=== PATIENT | male | born 1995 | race Caucasian/White ===

== ENCOUNTER 2016-10-21 01:22 | Emergency (ER) | payer OTHER ==
[2016-10-21 01:46] VITALS: BP 142/74; PULSE 83; TEMP 98.5; BMI 30.5
--- NOTE | 2016-10-21 02:45 | PDOC ---
History of Present Illness - General History Source: Patient Exam Limitations: No Limitations - History of Present Illness Initial Comments: CHIEF COMPLAINT: 21 y/o afebrile male with no significant PMH c/o left ear pain today. HISTORY OF PRESENT ILLNESS: The patient just returned from a vacation at the beach and states he's been swimming a lot. Today he developed left ear pain and thinks it's swimmer's ear. He states it feels like there is fluid in his ear. His mom has been putting OTC ear drops in his left ear without relief. He denies f/c, n/v/d, cough, runny nose, PEREA, foul smelling discharge from affected ear. Vital signs on arrival are within normal limits. REVIEW OF SYSTEMS: GENERAL/CONSTITUTIONAL: No fever/chills. No weakness. No weight change. HEAD, EYES, EARS, NOSE AND THROAT: No change in vision. +left ear pain. No sore throat. MUSCULOSKELETAL: No joint or muscle swelling or pain. No neck or back pain. SKIN: No rash or easy bruising. NEUROLOGIC: No headache, vertigo, loss of consciousness, or loss of sensation. PHYSICAL EXAM: GENERAL: The patient is awake, alert, and fully oriented, in no acute distress. He is well appearing and ambulatory. HEAD: Normal with no signs of trauma. No mastoid TTP b/l. EYES: Pupils equal, round and reactive to light, extraocular movements intact, sclera anicteric, conjunctiva clear. EARS: Left ear canal erythematous and moderately swollen. Cannot visualize TM secondary to fluid. EXTREMITIES: Normal range of motion, no edema. NEUROLOGICAL: Normal speech, normal gait. SKIN: Warm, Dry, normal turgor, no rashes or lesions noted. <Silvina Ramirez - Last Filed: 10/21/16 03:20> <Lorena Dos Santos - Last Filed: 10/21/16 05:29> - General Chief Complaint: Pain Stated Complaint: EAR PROBLEM Time Seen by Provider: 10/21/16 02:18 Past History - Past Medical History Asthma: Yes Suicide Attempt (Hx): No - Immunization History Immunization Up to Date: Yes - Psycho/Social/Smoking Cessation Hx Anxiety: No Suicidal Ideation: No Smoking Status: No Smoking History: Current every day smoker Number of Cigarettes Smoked Daily: 10 Information on smoking cessation initiated: No Hx Alcohol Use: No Drug/Substance Use Hx: No Substance Use Type: None <Silvina Ramirez - Last Filed: 10/21/16 03:20> <Lorena Dos Santos - Last Filed: 10/21/16 05:29> - Past Medical History Allergies/Adverse Reactions: Allergies Allergy/AdvReac Type Severity Reaction Status Date / Time No Known Allergies Allergy Verified 10/21/16 01:43 Home Medications: Ambulatory Orders Oseltamivir Phosphate [Tamiflu] 75 mg PO BID #10 capsule 07/13/15 Ciprofloxacin HCl/Dexameth [Ciprodex Otic Suspension] 4 drop BID #1 bottle *Physical Exam - Vital Signs Last Vital Signs Temp Pulse Resp BP Pulse Ox 98.5 F 83 20 142/74 100 10/21/16 01:43 10/21/16 01:43 10/21/16 01:43 10/21/16 01:43 10/21/16 01:43 <Silvina Ramirez - Last Filed: 10/21/16 03:20> - Vital Signs Last Vital Signs Temp Pulse Resp BP Pulse Ox 98.5 F 83 20 142/74 100 10/21/16 01:43 10/21/16 01:43 10/21/16 01:43 10/21/16 01:43 10/21/16 01:43 <Lorena Dos Santos - Last Filed: 10/21/16 05:29> Medical Decision Making - Medical Decision Making A/P: 21 y/o male with left swimmer's ear. Will send rx for ciprodex drops. Instructed him to take as prescribed. instructed him to f/u with his PCP if no improvement in symptoms within 2-3 days. Suggested motrin for pain and return to the ER with any worsening symptoms. The patient verbalizes understanding of all instructions, has no further questions and is awaiting discharge. <Silvina Ramirez - Last Filed: 10/21/16 03:20> *DC/Admit/Observation/Transfer <Silvina Ramirez - Last Filed: 10/21/16 03:20> - Attestations Physician Attestion: I reviewed the case with the mid-level practitioner and agree with the mid- level practitioner's assessment, diagnosis and disposition. <Carolina Dos Santoszabeth - Last Filed: 10/21/16 05:29> Diagnosis at time of Disposition: Otitis externa Qualifiers: Otitis externa type: swimmer's ear Chronicity: acute Laterality: left Qualified Code(s): H60.332 - Swimmer's ear, left ear - Discharge Dispostion Disposition: HOME Condition at time of disposition: Good - Prescriptions Prescriptions: Ciprofloxacin HCl/Dexameth [Ciprodex Otic Suspension] 4 drop BID #1 bottle - Referrals Referrals: Jerry Torres MD [Primary Care Provider] - - Patient Instructions Printed Discharge Instructions: DI for Otitis Externa Additional Instructions: Discharge Instructions: -A prescription has been sent to your pharmacy; please take as prescribed -Follow up with your doctor within 1 week -Return to the ER with any worsening or concerning symptoms.
== END 2016-10-21 04:49 | disposition home or self-care (01) ==
LOC: JER 01:22
DX: H60.332 Swimmer's ear, left ear (principal); J45.909 Unspecified asthma, uncomplicated; F17.210 Nicotine dependence, cigarettes, uncomplicated
CPT/HCPCS: 99282-25

== ENCOUNTER 2016-10-23 17:14 | Emergency (ER) | payer OTHER ==
[2016-10-23 17:48] VITALS: BP 129/77; PULSE 74; TEMP 98.4; BMI 31.4
--- NOTE | 2016-10-23 18:16 | PDOC ---
History of Present Illness - History of Present Illness Initial Comments: 10/23/16 18:20 Chief Complaint: left ear pain HPI: 21 y/o M with no PMHx presents to the ED with left ear pain and bleeding. Patient recently went on vacation to [place] and was swimming a lot. Once he came back he began to have left ear pain. He went to [facility] 3 days ago for the pain and was given Ciprodex ear drops. Patient states the pain continued and he noticed blood and fluid coming from his ear. He reports associated numbness around his left ear and some dizziness. Denies headache, changes in vision. No other complaints. ROS: CONSTITUTIONAL: Absent: fever, chills, fatigue EYES: Absent: visual changes ENT: (+) left ear pain. Absent: sore throat CARDIOVASCULAR: Absent: chest pain, palpitations RESPIRATORY: Absent: cough, SOB GI: Absent: abdominal pain, nausea, vomiting, constipation, diarrhea GENITOURINARY: Absent: dysuria, frequency, hematuria MUSCULOSKELETAL: Absent: back pain, arthralgia, myalgia SKIN: Absent: rash NEURO: Absent: headache Physical Exam: HEENT: Severe inflammation and narrowing of the left external canal with serosanguinous drainage. TM is not visualized. No signs of cellulitis in the preauricular area or other parts of the face. No palpable lymphadenopathy. <Wendy Sawant - Last Filed: 10/23/16 18:20> <Geronimo Isaac - Last Filed: 10/24/16 08:07> - General Chief Complaint: Pain, Acute Stated Complaint: left ear pain Time Seen by Provider: 10/23/16 17:32 Past History <Wendy Sawant - Last Filed: 10/23/16 18:20> - Past Medical History Asthma: Yes Suicide Attempt (Hx): No - Immunization History Td Vaccination: No TDAP Vaccination: No Immunization Up to Date: Yes - Psycho/Social/Smoking Cessation Hx Anxiety: No Suicidal Ideation: No Smoking Status: No Smoking History: Current every day smoker Have you smoked in the past 12 months: Yes Number of Cigarettes Smoked Daily: 10 Information on smoking cessation initiated: Yes 'Breaking Loose' booklet given: 10/23/16 Hx Alcohol Use: Yes (socially) Drug/Substance Use Hx: No Substance Use Type: None <Geronimo Isaac - Last Filed: 10/24/16 08:07> - Past Medical History Allergies/Adverse Reactions: Allergies Allergy/AdvReac Type Severity Reaction Status Date / Time No Known Allergies Allergy Verified 10/24/16 03:25 Home Medications: Ambulatory Orders Ciprofloxacin HCl/Dexameth [Ciprodex Otic Suspension] 4 drop BID #1 bottle Albuterol Sulfate Inhaler - [Ventolin HFA Inhaler -] 2 inh PO Q4H PRN 10/23/16 Cephalexin Monohydrate [Keflex] 500 mg PO Q6H #30 capsule 10/23/16 *Physical Exam - Vital Signs Last Vital Signs Temp Pulse Resp BP Pulse Ox 98.4 F 74 16 129/77 100 10/23/16 17:18 10/23/16 17:18 10/23/16 17:18 10/23/16 17:18 10/23/16 17:18 <Wendy Sawant - Last Filed: 10/23/16 18:20> - Vital Signs Last Vital Signs Temp Pulse Resp BP Pulse Ox 98.4 F 74 16 129/77 100 10/23/16 17:18 10/23/16 17:18 10/23/16 17:18 10/23/16 17:18 10/23/16 17:18 <Geronimo Isaac - Last Filed: 10/24/16 08:07> Medical Decision Making - Medical Decision Making 10/24/16 08:06 Patient appears to have significant otitis externa following a vacation at the beach. There is no fever or sign of URI which would suggest otitis media, however, TM is not visualized due to swelling and inflammation of the ear canal. There is minimal bleeding due to irritation of the canal To continue Cipro eardrops as well as oral antibiotics. ENT referral. No distress and fully ambulatory upon discharge with his mother to follow-up as directed <Geronimo Isaac - Last Filed: 10/24/16 08:07> *DC/Admit/Observation/Transfer - Attestations Scribe Attestion: 10/23/16 18:21 Documentation prepared by Wendy Sawant, acting as medical technologist generalist for Geronimo Deras MD. <Wendy Sawant - Last Filed: 10/23/16 18:20> - Discharge Dispostion Admit: No <Geronimo Isaac - Last Filed: 10/24/16 08:07> Diagnosis at time of Disposition: Otitis externa hemorrhagica Qualifiers: Chronicity: acute Laterality: left Qualified Code(s): H60.322 - Hemorrhagic otitis externa, left ear - Discharge Dispostion Condition at time of disposition: Stable - Prescriptions Prescriptions: Cephalexin Monohydrate [Keflex] 500 mg PO Q6H #30 capsule - Referrals Referrals: Hakeem Cutler MD [Staff Physician] - - Patient Instructions Printed Discharge Instructions: DI for Otitis Externa Additional Instructions: Use cotton to occlude the ear canal after using drops. Be sure not to push the cotton into deep into the canal. Take oral antibiotics as directed. Continue to use eardrops as well You may use Tylenol and/or Aleve/ibuprofen for discomfort. You may use an antihistamine such as Benadryl, Sammie, Zyrtec, for congestion. See ENT doctor if there is no improvement in 5-7 days for further evaluation and treatment
== END 2016-10-23 18:22 | disposition home or self-care (01) ==
LOC: FER 17:14
DX: H60.322 Hemorrhagic otitis externa, left ear (principal); F17.210 Nicotine dependence, cigarettes, uncomplicated; J45.909 Unspecified asthma, uncomplicated
CPT/HCPCS: 99281-25

== ENCOUNTER 2016-10-24 03:18 | Inpatient (IN) | payer OTHER ==
--- NOTE | 2016-10-24 04:11 | PDOC ---
History of Present Illness - General Chief Complaint: Ear Problem Stated Complaint: EAR PROBLEM Time Seen by Provider: 10/24/16 03:27 - History of Present Illness Initial Comments: 10/24/16 04:10 CHIEF COMPLAINT: ear pain HISTORY OF PRESENT ILLNESS: 21 yo M with no PMH returns to ED for worsening ear pain over the last 4 days. Patient was recently on vacation to a beach in [place] and states that he was swimming a lot. He began having L ear pain on 10/20 and came to the ER on 10/21; was discharged with Ciprodex ear drops. He then returned yesterday with worsening pain and bloody discharge from the L ear and was discharged with Keflex. He states that the pain has now worsened and he feels as if his hearing is "dampened." He denies any fever, chills, vomiting, or diarrhea but states that he did have some nausea. PAST MEDICAL HISTORY: Denies past medical history FAMILY HISTORY: Denies SOCIAL HISTORY:Denies tobacco, alcohol, illicit drug use. SURGICAL HISTORY: Denies ALLERGIES: No known drug allergies REVIEW OF SYSTEMS General/Constitutional: Denies fever or chills. HEENT: B/l ear pain with bloody discharge. Denies change in vision. Denies sore throat. Cardiovascular: Denies chest pain or shortness of breath. Respiratory: Denies cough, wheezing, or hemoptysis. Gastrointestinal: Nausea. Denies vomiting, diarrhea or constipation. Denies rectal bleeding. Musculoskeletal: Denies joint or muscle swelling or pain. Denies neck or back pain. Skin: Denies rash or easy bruising. Neurologic: Denies headache, vertigo, loss of consciousness, or loss of sensation. PHYSICAL EXAM General Appearance: Well-appearing, appropriately dressed. No apparent distress. HEENT: B/l auditory canals with serosanguinous discharge. Markedly erythematous and edematous ear canals. L TM with bloody discharge, difficult to visualize. Tenderness to posterior L ear. EOMI, PERRLA,normal voice, pharynx normal. No conjunctival pallor. No photophobia, scleral icterus. Respiratory/Chest: Lungs CTAB. Cardiovascular: RRR. S1, S2. Musculoskeletal/Extremities: Normal inspection. FROM of all extremities, normal capillary refill. No tenderness to extremities, pedal edema, swelling, erythema or deformity. Integumentary: Appropriate color, dry, warm. No cyanosis, erythema, jaundice or rash Neurologic: partner alliance manager II-XII intact. Fully oriented, alert. Appropriate mood/affect. Motor strength 5/5. No appreciable EOM palsy, facial droop or sensory deficit. Past History - Past Medical History Allergies/Adverse Reactions: Allergies Allergy/AdvReac Type Severity Reaction Status Date / Time No Known Allergies Allergy Verified 10/24/16 03:25 Home Medications: Ambulatory Orders Ciprofloxacin HCl/Dexameth [Ciprodex Otic Suspension] 4 drop BID #1 bottle Albuterol Sulfate Inhaler - [Ventolin HFA Inhaler -] 2 inh PO Q4H PRN 10/23/16 Cephalexin Monohydrate [Keflex] 500 mg PO Q6H #30 capsule 10/23/16 Asthma: Yes Suicide Attempt (Hx): No - Immunization History Td Vaccination: No TDAP Vaccination: No Immunization Up to Date: Yes - Psycho/Social/Smoking Cessation Hx Anxiety: No Suicidal Ideation: No Smoking Status: No Smoking History: Current every day smoker Have you smoked in the past 12 months: Yes Number of Cigarettes Smoked Daily: 10 Information on smoking cessation initiated: No 'Breaking Loose' booklet given: 10/23/16 Hx Alcohol Use: No Drug/Substance Use Hx: No Substance Use Type: None *Physical Exam - Vital Signs Last Vital Signs Temp Pulse Resp BP Pulse Ox 98.3 F 88 20 120/69 99 10/24/16 03:26 10/24/16 03:26 10/24/16 03:26 10/24/16 03:26 10/24/16 03:26 ED Treatment Course - RADIOLOGY Radiology Studies Ordered: Category Date Time Status HEAD CT WITHOUT CONTRAST [CT] Stat CT Scan 10/24/16 03:40 Ordered Medical Decision Making - Medical Decision Making 10/24/16 04:18 21 yo M with no PMH returns to ED for third visit for worsening ear pain over the last 4 days. Concern for mastoiditis. -Temporal bone CT r/o mastoiditis 10/24/16 06:[address] results. Patient reassessed, c/o pain. -800 mg ibuprofen -CBC, CMP, blood cx -500 mg Levaquin IVPB Case discussed in detail with oncoming emergency provider including history, physical exam and ancillary studies. In brief, this patient is being seen in the ED for a chief complaint of: ear pain I have completed the initial assessment interview note and have ordered the following labs: CBC, CMP, blood cultures I have reviewed the following results: none Pending results: all Plan for disposition as follows: pending CT Oncoming SILAS Byrnes has assumed care for the patient and will complete the evaluation and treatment. 10/24/16 06:32
[2016-10-24] MEDS ORDERED: IBUPROFEN 400 MG TABLET (FP) PO ONE ×2 (06:16→06:21)
[2016-10-24] MEDS ORDERED: LEVOFLOXACIN 500 MG IVPB 100 ML IVPB ONE ×2 (06:24→06:27)
[2016-10-24 06:55] LABS: BASOPHIL 0.5 % (0-2.0); EOSINOPHIL 4.3 % (0-4.5); MCH 30.4 pg (25.7-33.7); MCHC 34.6 g/dl (32.0-35.9); MEAN CELL VOLUME 87.9 fl (80-96); MEAN PLT VOLUME 7.7 fl (7.5-11.1); NEUTROPHILS 58.2 % (42.8-82.8); PLATELET COUNT 254 K/MM3 (134-434); RDW 13.3 % (11.9-15.9); WHITE BLOOD COUNT 6.8 K/mm3 (4.0-10.0)
--- NOTE | 2016-10-24 07:06 | PDOC ---
*Physical Exam - Vital Signs Last Vital Signs Temp Pulse Resp BP Pulse Ox 98.3 F 88 20 120/69 99 10/24/16 03:26 10/24/16 03:26 10/24/16 03:26 10/24/16 03:26 10/24/16 03:26 ED Treatment Course - LABORATORY CBC & Chemistry Diagram: 10/24/16 06:35 10/24/16 06:35 - Medications Given in the ED: ED Medications Discontinued Medications Generic Name Dose Route Start Last Admin Trade Name Tanya PRN Reason Stop Dose Admin Ibuprofen 800 mg 10/24/16 06:16 10/24/16 06:22 Motrin - PO 10/24/16 06:17 800 mg ONCE ONE Administration Medical Decision Making - Medical Decision Making 10/24/16 07:04 Signout received from RACHELE Judge. Briefly, this is a 21 year old male with a history of asthma here with his third ER visit for ear pain, now with bleeding from both ears and pain over left mastoid process. Has been given Ciprodex and Keflex as outpatient with worsening symptoms. CT shows early mastoiditis on the left side. Patient to be admitted for IV antibiotics. PCP is Dr. Torres. Accepted by Dr. Hull for admission. *DC/Admit/Observation/Transfer Diagnosis at time of Disposition: Mastoiditis, acute Qualifiers: Laterality: left Qualified Code(s): H70.002 - Acute mastoiditis without complications, left ear - Discharge Dispostion Admit: Yes - Referrals Referrals: Jerry Torres MD [Primary Care Provider] -
[2016-10-24 07:24] LABS: ALBUMIN 3.9 g/dl (3.4-5.0); ANION GAP 7 (8-16); BILIRUBIN,TOTAL 0.5 mg/dL (0.2-1.0); CALCIUM 9.2 mg/dL (8.5-10.1); CO2 29 mmol/L (21-32); CREATININE 0.9 mg/dL (0.7-1.3); GLUCOSE,RANDOM 85 mg/dL (74-106); SGOT/AST 19 U/L (15-37); SGPT/ALT 31 U/L (12-78); TOT PROT 7.5 g/dl (6.4-8.2)
[2016-10-24 07:25] LABS: ALK PHOS 68 U/L (45-117)
[2016-10-24] MEDS ORDERED: ACETAMINOPHEN 325 MG TABLET (FP) PO PRN (07:59)
[2016-10-24] MEDS ORDERED: ONDANSETRON 4 MG/2 ML VIAL IVPUSH ONE (08:05)
[2016-10-24] MEDS ORDERED: ONDANSETRON 4 MG/2 ML VIAL ONE (08:07)
--- NOTE | 2016-10-24 10:04 | HP ---
Admitting History and Physical - Primary Care Physician PCP: Chayo Hull - Admission Chief Complaint: LEFT EAR AND JAW PAIN FOR 2 DAYS PROGRESSING History of Present Illness: 21 Y/O MALE TRAVELING BY CAR FROM [place] WHERE HE WAS VACATIONING. PATIENT REPORTS SWIMMING IN THE OCEAN AND POOLS BUT NOT PONDS/LAKES. PATIENT WAS STARTED ON PO ABX AND OTIC DROPS THAT DID NOT HELP. PATIENT ADMITTED FOR WORSENING EAR INFECTION WITH OOZING BLEED LEFT EAR. History Source: Patient, Family Member - Smoking History Smoking history: Current every day smoker Have you smoked in the past 12 months: Yes Aproximately how many cigarettes per day: 10 - Alcohol/Substance Use Hx Alcohol Use: No Home Medications - Allergies Allergies/Adverse Reactions: Allergies Allergy/AdvReac Type Severity Reaction Status Date / Time No Known Allergies Allergy Verified 10/24/16 03:25 - Home Medications Home Medications: Ambulatory Orders Ciprofloxacin HCl/Dexameth [Ciprodex Otic Suspension] 4 drop BID #1 bottle Albuterol Sulfate Inhaler - [Ventolin HFA Inhaler -] 2 inh PO Q4H PRN 10/23/16 Cephalexin Monohydrate [Keflex] 500 mg PO Q6H #30 capsule 10/23/16 Review of Systems - Review of Systems Constitutional: reports: Lethargy Eyes: reports: No Symptoms HENT: reports: Difficult Swallowing, Ear Discharge, Ear Pain, Throat Pain Neck: reports: No Symptoms Cardiovascular: reports: No Symptoms Respiratory: reports: No Symptoms Gastrointestinal: reports: No Symptoms Genitourinary: reports: No Symptoms Musculoskeletal: reports: No Symptoms Integumentary: reports: No Symptoms Neurological: reports: No Symptoms Endocrine: reports: No Symptoms Hematology/Lymphatic: reports: No Symptoms Psychiatric: reports: No Symptoms Physical Examination Vital Signs: Vital Signs Temperature 98.4 F 10/24/16 08:25 Pulse Rate 88 10/24/16 03:26 Respiratory Rate 18 10/24/16 08:25 Blood Pressure 145/74 10/24/16 08:25 O2 Sat by Pulse Oximetry (%) 989 H 10/24/16 08:25 Constitutional: Yes: Mild Distress Eyes: Yes: WNL HENT: Yes: Other (LEFT EAR + BLEED WITH INFECTIOUS DISCHARGE TENDERNESS OVER MASTOIDS) Cardiovascular: Yes: WNL Respiratory: Yes: WNL Gastrointestinal: Yes: WNL Renal/: Yes: WNL Musculoskeletal: Yes: WNL Extremities: Yes: WNL Edema: No Peripheral Pulses WNL: Yes Integumentary: Yes: WNL Wound/Incision: Yes: Draining, Reddened Neurological: Yes: WNL ...Motor Strength: WNL Psychiatric: Yes: WNL Imaging - Results Cat Scan: Report Reviewed Problem List - Problems (1) Mastoiditis, acute Code(s): H70.009 - ACUTE MASTOIDITIS WITHOUT COMPLICATIONS, UNSPECIFIED EAR Qualifiers: Laterality: left Qualified Code(s): H70.002 - Acute mastoiditis without complications, left ear Assessment/Plan IV ABX CORTISPORIN OTIC DROPS PAIN CONTROL CULTURES ENT AND ID CONSULT
--- NOTE | 2016-10-24 12:13 | CONSULT ---
Consultation: REQUESTING PROVIDER: CONSULT REQUEST: We have been asked to medically evaluate this patient for ( specify). HISTORY OF PRESENT ILLNESS: Patient is a 21 year old with a history of Asthma presented to the ED with his mother for worsening b/l ear pain, left sided- hearing loss, and numbness over the last 4 days and b/l bloody discharge that started yesterday. Patient came back from vacationing in [place] on the where he spent most of his time swimming on the beach and in the hotel pool. He came to the ER on the after he began having left sided ear pain and was discharged on Ciprodex ear drops. He then came back to the ER yesterday because of worsening pain and bloody discharge from both ears and was discharged with Keflex. He also states that he has decreased energy and has been feeling cold symptoms since his trips. He complained of cough and chills and has been using his inhaler a lot more in the past week. REVIEW OF SYSTEMS: CONSTITUTIONAL: Absent: fever, chills, diaphoresis, generalized weakness, malaise, loss of appetite, weight change HEENT: b/l ear pain, left ear bloody discharge, difficuly swallowing Absent: rhinorrhea, nasal congestion, throat pain, throat swelling, mouth swelling, eye pain, visual changes CARDIOVASCULAR: Absent: chest pain, syncope, palpitations, irregular heart rate, lightheadedness , peripheral edema RESPIRATORY: Absent: cough, shortness of breath, dyspnea with exertion, orthopnea, wheezing, stridor, hemoptysis GASTROINTESTINAL: Absent: abdominal pain, abdominal distension, nausea, vomiting, diarrhea, constipation, melena, hematochezia GENITOURINARY: Absent: dysuria, frequency, urgency, hesitancy, hematuria, flank pain, genital pain MUSCULOSKELETAL: Absent: myalgia, arthralgia, joint swelling, back pain, neck pain SKIN: Absent: rash, itching, pallor HEMATOLOGIC/IMMUNOLOGIC: Absent: easy bleeding, easy bruising, lymphadenopathy, frequent infections ENDOCRINE: Absent: unexplained weight gain, unexplained weight loss, heat intolerance, cold intolerance NEUROLOGIC: Absent: headache, focal weakness or paresthesias, dizziness, unsteady gait, seizure, mental status changes, bladder or bowel incontinence PSYCHIATRIC: Absent: anxiety, depression, suicidal or homicidal ideation, hallucinations. PHYSICAL EXAMINATION Vital Signs - 24 hr 10/24/16 08:25 Temperature 98.4 F Respiratory 18 Rate Blood Pressure 145/74 [Right] O2 Sat by Pulse 989 H Oximetry (%) GENERAL: Awake, alert, and fully oriented, in no acute distress. HEAD: Normal with no signs of trauma. EYES: Pupils equal, round and reactive to light, extraocular movements intact, sclera anicteric, conjunctiva clear. No lid lag. EARS, NOSE, THROAT: B/L auditory cancals with serosanguinous discharge. Markedly erythematous and edematous ear canals. L TM with bloody discharge difficult to visualize. Tenderness to posterior L ear. , nares patent, oropharynx clear without exudates. Moist mucous membranes. NECK: Normal range of motion, supple without lymphadenopathy, JVD, or masses. LUNGS: Breath sounds equal, clear to auscultation bilaterally. No wheezes, and no crackles. No accessory muscle use. HEART: Regular rate and rhythm, normal S1 and S2 without murmur, rub or gallop. ABDOMEN: Soft, nontender, not distended, normoactive bowel sounds, no guarding, no rebound, no masses. No hepatomegaly or splenomegaly. MUSCULOSKELETAL: Normal range of motion at all joints. No bony deformities or tenderness. No CVA tenderness. UPPER EXTREMITIES: 2+ pulses, warm, well-perfused. No cyanosis. No clubbing. Cap refill <2 seconds. No peripheral edema. LOWER EXTREMITIES: 2+ pulses, warm, well-perfused. No calf tenderness. No peripheral edema. PSYCHIATRIC: Cooperative. Good eye contact. Appropriate mood and affect. SKIN: Warm, dry, normal turgor, no rashes or lesions noted. Active Medications Generic Name Dose Route Start Last Admin Trade Name Freq PRN Reason Stop Dose Admin Acetaminophen 650 mg 10/24/16 07:59 Tylenol - PO Q6H PRN FEVER OR PAIN Ketorolac Tromethamine 30 mg 10/24/16 07:59 Toradol Injection - IVPUSH 10/29/16 07:58 Q6H PRN PAIN Neomycin/Polymyxin/Hydrocortisone 4 drop 10/24/16 12:00 Cortisporin Otic Solution - AD Q6HPO [facility] ASSESSMENT/PLAN: 21 y/o m presents to the ED and admitted for worsening b/l ear pain, left sided hearing loss, and bloody discharge since vacationing in [place] 4 days ago. Dispo: We will continue to follow the patient. Thank you for this consultative opportunity. Problem List - Problems (1) Mastoiditis, acute Assessment/Plan: Assessment/Plan -Start IV Antibiotics- Zosyn -ENT consult Code(s): H70.009 - ACUTE MASTOIDITIS WITHOUT COMPLICATIONS, UNSPECIFIED EAR Qualifiers: Laterality: left Qualified Code(s): H70.002 - Acute mastoiditis without complications, left ear Visit type - Emergency Visit Emergency Visit: Yes ED Registration Date: 10/24/16 Care time: The patient presented to the Emergency Department on the above date and was hospitalized for further evaluation of their emergent condition. - New Patient This patient is new to me today: No - Critical Care Critical Care patient: No
[2016-10-24 13:14] VITALS: BMI 30.8
[2016-10-24] MEDS: NEOMYCIN/POLYMYXN/HC OTIC SOLUTION 10 ML BOTTLE AD SCH ×2 (13:27→17:18)
--- NOTE | 2016-10-24 15:16 | PN ---
Teaching Attending Note Name of Resident: Brodie Maradiaga ATTENDING PHYSICIAN STATEMENT I saw and evaluated the patient. I reviewed the resident's note and discussed the case with the resident. I agree with the resident's findings and plan as documented. SUBJECTIVE: c/o drainage from left ear, decreased hearing recent swimming in the ocean and pool in [place], just got back tried swimmers eardrops OTC, came to ED on 10/21 and given cipro ear drops 10/23 with bloody discharge from ear came to ED received keflex po one dose ct scan in ED notable for left external otitis awaiting ENT evaluation no fevers or chills OBJECTIVE: Vital Signs Period Temp Pulse Resp BP Sys/Longo Pulse Ox Last 24 Hr 97.1 F-98.4 F 82-88 18-20 114-145/63-78 98-989 cor-rrr lungs clear ears- unable to visualize tm, +blood in canal abd soft,nt ext no edema CBC, BMP 10/24/16 06:35 10/24/16 06:35 ASSESSMENT AND PLAN: otitis externa, ?OM will start zosyn awaiting ENT evaluation didnot respond to cipro ear drops last 48H
[2016-10-24] MEDS ORDERED: PIPERACILLIN/TAZOB 3.375 GM/50 ML PRE-DOCKED IVPB SCH (15:30)
[2016-10-24] MEDS ORDERED: PIPERACILLIN/TAZOBACTAM 3.375 GM VIAL IVPB ONE ×2 (16:54→20:41)
[2016-10-24] MEDS ORDERED: DEXTROSE 5%-WATER - 50 ML IVPB ONE ×2 (16:55→20:41)
[2016-10-24] MEDS: PIPERACILLIN/TAZOB 3.375 GM 3.375 GM in DEXTROSE 5%-WATER - 50 ML IVPB SCH (17:18)
[2016-10-24] MEDS: KETOROLAC TROMETHAMINE 30 MG/1 ML VIAL IVPUSH PRN (18:44)
[2016-10-25] MEDS: PIPERACILLIN/TAZOB 3.375 GM 3.375 GM in DEXTROSE 5%-WATER - 50 ML IVPB SCH ×3 (01:56→18:42)
[2016-10-25] MEDS: NEOMYCIN/POLYMYXN/HC OTIC SOLUTION 10 ML BOTTLE AD SCH ×4 (06:00→18:39)
[2016-10-25 08:19] LABS: MCH 29.9 pg (25.7-33.7); MCHC 34.3 g/dl (32.0-35.9); MEAN CELL VOLUME 87.3 fl (80-96); PLATELET COUNT 229 K/MM3 (134-434); RDW 13.2 % (11.9-15.9); WHITE BLOOD COUNT 5.1 K/mm3 (4.0-10.0)
[2016-10-25 09:49] LABS: ALBUMIN 3.3 g/dl (3.4-5.0); ALK PHOS 60 U/L (45-117); ANION GAP 6 (8-16); BILIRUBIN,TOTAL 0.5 mg/dL (0.2-1.0); CALCIUM 8.8 mg/dL (8.5-10.1); CO2 28 mmol/L (21-32); CREATININE 0.9 mg/dL (0.7-1.3); GLUCOSE,RANDOM 89 mg/dL (74-106); SGOT/AST 15 U/L (15-37); SGPT/ALT 28 U/L (12-78); TOT PROT 6.4 g/dl (6.4-8.2)
[2016-10-25] MEDS ORDERED: PIPERACILLIN/TAZOBACTAM 3.375 GM VIAL IVPB ONE ×2 (10:11→16:30)
[2016-10-25] MEDS ORDERED: DEXTROSE 5%-WATER - 50 ML IVPB ONE ×2 (10:11→16:31)
[2016-10-25] MEDS ORDERED: NEOMYCIN/COLISTIN/HC OTIC SUSP 5 ML BOTTLE AD SCH (14:00)
--- NOTE | 2016-10-25 14:38 | PN ---
Progress Note, Physician Chief Complaint: AWAKE ALERT STILL IN PAIN AWAITING ENT CONSULT - Current Medication List Current Medications: Active Medications Acetaminophen (Tylenol -) 650 mg PO Q6H PRN PRN Reason: FEVER OR PAIN Acetic Acid (Vosol 2% Ear Drops -) 3 drop AD Q4HWA EDITH Piperacillin Sod/Tazobactam (Sod 3.375 gm/ Dextrose) 50 mls @ 100 mls/hr IVPB Q8H-IV EDITH Last Admin: 10/25/16 10:21 Dose: 100 mls/hr Ketorolac Tromethamine (Toradol Injection -) 30 mg IVPUSH Q6H PRN PRN Reason: PAIN Stop: 10/29/16 07:58 Last Admin: 10/24/16 18:44 Dose: 30 mg Neomycin/Polymyxin/Hydrocortisone (Cortisporin Otic Solution -) 4 drop AD Q6HPO EDITH Last Admin: 10/25/16 12:39 Dose: 4 drop - Objective Vital Signs: Vital Signs Temperature 97.8 F 10/25/16 08:33 Pulse Rate 68 10/25/16 08:33 Respiratory Rate 18 10/25/16 08:58 Blood Pressure 113/52 10/25/16 08:33 O2 Sat by Pulse Oximetry (%) 98 10/25/16 08:58 Constitutional: Yes: Mild Distress Eyes: Yes: WNL HENT: Yes: Other (ear pain) Cardiovascular: Yes: WNL Respiratory: Yes: WNL Gastrointestinal: Yes: WNL Genitourinary: Yes: WNL Musculoskeletal: Yes: WNL Extremities: Yes: WNL Edema: No Peripheral Pulses WNL: Yes Integumentary: Yes: WNL Wound/Incision: Yes: Clean/Dry Neurological: Yes: WNL ...Motor Strength: WNL Psychiatric: Yes: WNL Labs: CBC, BMP 10/25/16 06:00 10/25/16 06:00 Problem List - Problems (1) Mastoiditis, acute Code(s): H70.009 - ACUTE MASTOIDITIS WITHOUT COMPLICATIONS, UNSPECIFIED EAR Qualifiers: Laterality: left Qualified Code(s): H70.002 - Acute mastoiditis without complications, left ear Assessment/Plan ENT NOTE REVIEWED CONT IV ABX OTIC DROPS TORADOL PRN
--- NOTE | 2016-10-25 15:29 | PN ---
Physical Exam: SUBJECTIVE: Patient seen and examined. Still experiencing pain in his left ear and difficulty chewing on food. No overnight events and new complaints. Denies fever, diarrhea, urinary symptoms and abdominal pain. OBJECTIVE: Vital Signs Period Temp Pulse Resp BP Sys/Longo Pulse Ox Last 24 Hr 97.8 F-98.2 F 54-71 18-20 113-119/52-65 98-98 GENERAL: The patient is awake, alert, and fully oriented, in no acute distress. HEAD: Normal with no signs of trauma. EYES: PERRL, extraocular movements intact, sclera anicteric, conjunctiva clear. No ptosis. ENT: nares patent, oropharynx clear without exudates, moist mucous membranes. NECK: Trachea midline, full range of motion, supple. LUNGS: Breath sounds equal, clear to auscultation bilaterally, no wheezes, no crackles, no accessory muscle use. HEART: Regular rate and rhythm, S1, S2 without murmur, rub or gallop. ABDOMEN: Soft, nontender, nondistended, normoactive bowel sounds, no guarding, no rebound, no hepatosplenomegaly, no masses. EXTREMITIES: 2+ pulses, warm, well-perfused, no edema. PSYCH: Normal mood, normal affect. SKIN: Warm, dry, normal turgor, no rashes or lesions noted Laboratory Results - last 24 hr 10/25/16 10/25/16 06:00 06:00 WBC 5.1 RBC 4.96 Hgb 14.8 Hct 43.3 MCV 87.3 MCH 29.9 MCHC 34.3 RDW 13.2 Plt Count 229 MPV 8.0 Sodium 139 Potassium 4.1 Chloride 105 Carbon Dioxide 28 Anion Gap 6 L BUN 13 Creatinine 0.9 Creat Clearance w eGFR > 60 Random Glucose 89 Calcium 8.8 Total Bilirubin 0.5 AST 15 D ALT 28 Alkaline Phosphatase 60 Total Protein 6.4 Albumin 3.3 L Active Medications Generic Name Dose Route Start Last Admin Trade Name Freq PRN Reason Stop Dose Admin Acetaminophen 650 mg 10/24/16 07:59 Tylenol - PO Q6H PRN FEVER OR PAIN Acetic Acid 3 drop 10/25/16 14:00 Vosol 2% Ear Drops - AD Q4HWA EDITH Piperacillin Sod/Tazobactam 50 mls @ 100 mls/hr 10/24/16 15:45 10/25/16 10:21 Sod 3.375 gm/ Dextrose IVPB 100 mls/hr Q8H-IV EDITH Administration Ketorolac Tromethamine 30 mg 10/24/16 07:59 10/24/16 18:44 Toradol Injection - IVPUSH 10/29/16 07:58 30 mg Q6H PRN Administration PAIN Neomycin/Polymyxin/Hydrocortisone 4 drop 10/24/16 12:00 10/25/16 12:39 Cortisporin Otic Solution - AD 4 drop Q6HPO EDITH Administration ASSESSMENT/PLAN: 21 y/o m presents to the ED and admitted for worsening b/l ear pain, left sided hearing loss, and bloody discharge since vacationing in [place] 4 days ago. Problem List - Problems (1) Mastoiditis, acute Assessment/Plan: -Continue Zosyn 3.375 gm (day 2) -awaiting ENT cosult Code(s): H70.009 - ACUTE MASTOIDITIS WITHOUT COMPLICATIONS, UNSPECIFIED EAR Qualifiers: Laterality: left Qualified Code(s): H70.002 - Acute mastoiditis without complications, left ear Visit type - Emergency Visit Emergency Visit: Yes ED Registration Date: 10/24/16 Care time: The patient presented to the Emergency Department on the above date and was hospitalized for further evaluation of their emergent condition. - New Patient This patient is new to me today: No - Critical Care Critical Care patient: No
--- NOTE | 2016-10-25 16:41 | PN ---
Teaching Attending Note Name of Resident: Brodie Maradiaga ATTENDING PHYSICIAN STATEMENT I saw and evaluated the patient. I reviewed the resident's note and discussed the case with the resident. I agree with the resident's findings and plan as documented. SUBJECTIVE: feels the same less jaw pain, hearing muffled OBJECTIVE: Vital Signs Period Temp Pulse Resp BP Sys/Longo Pulse Ox Last 24 Hr 97.8 F-98.2 F 54-71 18-20 113-119/52-65 98-98 able to open mouth easily cor-rrr lungs clear abd soft,ntt ext no edema CBC, BMP 10/25/16 06:00 10/25/16 06:00 Microbiology 10/24/16 06:24 Blood - Peripheral Venous Blood Culture - Preliminary NO GROWTH OBTAINED AFTER 24 HOURS, INCUBATION TO CONTINUE FOR 4 DAYS. 10/24/16 06:35 Blood - Peripheral Venous Blood Culture - Preliminary NO GROWTH OBTAINED AFTER 24 HOURS, INCUBATION TO CONTINUE FOR 4 DAYS. ASSESSMENT AND PLAN: otitis externa ?OM awaiting ent continue zosyn for now furhter management per ENT
[2016-10-25] MEDS: KETOROLAC TROMETHAMINE 30 MG/1 ML VIAL IVPUSH PRN (18:00)
[2016-10-25] MEDS: ACETIC ACID 2% OTIC SOLN 15ML BOTTLE AD SCH ×3 (18:40→21:39)
--- NOTE | 2016-10-25 19:18 | CON.ENT ---
Consult Consult Specialty:: ENT Referred by:: Dr. Hull Reason for Consultation:: ear pain - History of Present Illness Chief Complaint: left ear pain, and right ear drainage History of Present Illness: 21 yo M recently on vacation in [place], swam a lot developed significant left ear pain, tried otc Swim Ear drops, hurt drove home to [place] and presented to ER 10-24-[address] scan of temporal bones showing canal soft tissue, also a few opacified cells left ethmoid complains of ear pain and trouble hearing left some drainage right ear noted too with sl blood no significant prior ear problems mother has had swimmers ear in past. - History Source History Provided By: Patient, Family Member, Medical Record Limitations to Obtaining History: No Limitations - Alcohol/Substance Use Hx Alcohol Use: Yes (OCC) - Smoking History Smoking history: Current every day smoker Have you smoked in the past 12 months: Yes Aproximately how many cigarettes per day: 10 Home Medications - Allergies Allergies/Adverse Reactions: Allergies Allergy/AdvReac Type Severity Reaction Status Date / Time No Known Allergies Allergy Verified 10/24/16 03:25 - Home Medications Home Medications: Ambulatory Orders Ciprofloxacin HCl/Dexameth [Ciprodex Otic Suspension] 4 drop BID #1 bottle Albuterol Sulfate Inhaler - [Ventolin HFA Inhaler -] 2 inh PO Q4H PRN 10/23/16 Cephalexin Monohydrate [Keflex] 500 mg PO Q6H #30 capsule 10/23/16 Physical Exam-ENT Vital Signs: Vital Signs Temperature 97.8 F 10/25/16 16:59 Pulse Rate 61 10/25/16 16:59 Respiratory Rate 18 10/25/16 16:59 Blood Pressure 129/59 10/25/16 16:59 O2 Sat by Pulse Oximetry (%) 98 10/25/16 08:58 Constitutional: Yes: Well Nourished, No Distress, Calm Head: Yes: WNL Face: Yes: WNL Eyes: Yes: WNL Nose: Yes: WNL Outer Ear: Yes: WNL, Other (no mastoid swelling) Ear Canal: Yes: Other (right - sl thin bloody otorrhea, squamous debris - suctioned, minimal edema, Tm intact left: significant edema and otorrhea, squamous debris, suctioned. swollen medially, cannot visualize TM) Respiratory: Yes: WNL Imaging - Results Cat Scan: Report Reviewed, Image Reviewed (soft tissue swelling left ear canal, few opacified cells, NO bony erosion) Problem List - Problems (1) Mastoiditis, acute Assessment/Plan: this is a radiographic finding, but patient does not have clinical mastoiditis only a few cells have fluid or thickening NO bony erosion Code(s): H70.009 - ACUTE MASTOIDITIS WITHOUT COMPLICATIONS, UNSPECIFIED EAR Qualifiers: Laterality: left Qualified Code(s): H70.002 - Acute mastoiditis without complications, left ear (2) Otitis externa Assessment/Plan: patient has bilateral external otitis affecting left greater than right external auditory canals otorrhea and squamous debris suctioned from both canals the edema and debris prevented drops from fully entering the canals, alexia on left side right TM visualized, intact left TM not visualized because of medial canal swelling Recommend: wick placed in left ear canal and eardrops placed continue [id number] eardrops . wick should be removed in three days If patient can be discharged over weekend then can follow-up in office on Friday otherwise someone from office can see him in hospital left ear hearing loss is temporary and should resolve after infection and canal edema improve Thank you for consultation,\ Hakeem Cutler MD FACS Code(s): H60.90 - UNSPECIFIED OTITIS EXTERNA, UNSPECIFIED EAR Qualifiers: Otitis externa type: swimmer's ear Chronicity: acute Laterality: bilateral Qualified Code(s): H60.333 - Swimmer's ear, bilateral
[2016-10-25] MEDS ORDERED: NEOMYCIN/POLYMYXN/HC OTIC SOLUTION 10 ML BOTTLE AU SCH (19:23)
[2016-10-26] MEDS: NEOMYCIN/POLYMYXN/HC OTIC SOLUTION 10 ML BOTTLE AU SCH ×4 (00:21→17:28)
[2016-10-26] MEDS ORDERED: PIPERACILLIN/TAZOBACTAM 3.375 GM VIAL IVPB ONE ×2 (01:01→09:29)
[2016-10-26] MEDS ORDERED: DEXTROSE 5%-WATER - 50 ML IVPB ONE ×2 (01:02→09:29)
[2016-10-26] MEDS: PIPERACILLIN/TAZOB 3.375 GM 3.375 GM in DEXTROSE 5%-WATER - 50 ML IVPB SCH ×2 (01:39→09:36)
[2016-10-26] MEDS: ACETIC ACID 2% OTIC SOLN 15ML BOTTLE AD SCH ×5 (06:30→21:45)
[2016-10-26] MEDS ORDERED: PT OWN MED DRAWER 7, Y5N ONE ×2 (11:04→15:13)
--- NOTE | 2016-10-26 11:59 | PN ---
Progress Note, Physician Chief Complaint: Patient came in for Acute Mastoiditis and Otitis Externa History of Present Illness: Patient is a 21 year old with a history of Asthma presented to the ED with his mother for worsening b/l ear pain, left sided-hearing loss, and numbness over the last 4 days and b/l bloody discharge that started yesterday. Patient came back from vacationing in [place] on the where he spent most of his time swimming on the beach and in the hotel pool. He came to the ER on the after he began having left sided ear pain and was discharged on Ciprodex ear drops. He then came back to the ER yesterday because of worsening pain and bloody discharge from both ears and was discharged with Keflex. He also states that he has decreased energy and has been feeling cold symptoms since his trips. He complained of cough and chills and has been using his inhaler a lot more in the past week. Patient comfortably lying in bed, still experiencing pain in his left ear and decreased hearing. Denies fever, diarrhea, urinary symptoms and abdominal pain. - Current Medication List Current Medications: Active Medications Acetaminophen (Tylenol -) 650 mg PO Q6H PRN PRN Reason: FEVER OR PAIN Acetic Acid (Vosol 2% Ear Drops -) 3 drop AD Q4HWA EDITH Last Admin: 10/26/16 09:36 Dose: 3 drop Piperacillin Sod/Tazobactam (Sod 3.375 gm/ Dextrose) 50 mls @ 100 mls/hr IVPB Q8H-IV EDITH Last Admin: 10/26/16 09:36 Dose: 100 mls/hr Ketorolac Tromethamine (Toradol Injection -) 30 mg IVPUSH Q6H PRN PRN Reason: PAIN Stop: 10/29/16 07:58 Last Admin: 10/25/16 18:00 Dose: 30 mg Neomycin/Polymyxin/Hydrocortisone (Cortisporin Otic Solution -) 4 drop AU Q6HPO EDITH Last Admin: 10/26/16 11:11 Dose: 4 drop - Objective Vital Signs: Vital Signs Temperature 97.9 F 10/26/16 10:00 Pulse Rate 61 10/26/16 10:00 Respiratory Rate 18 10/26/16 10:00 Blood Pressure 132/63 10/26/16 10:00 O2 Sat by Pulse Oximetry (%) 98 08/19/17 09:00 Constitutional: Yes: No Distress, Calm Eyes: Yes: Conjunctiva Clear, EOM Intact HENT: Yes: Normocephalic, Other (Wick noted on the left ear) Neck: Yes: Supple, Trachea Midline Cardiovascular: Yes: Regular Rate and Rhythm Respiratory: Yes: Regular, CTA Bilaterally Gastrointestinal: Yes: Normal Bowel Sounds, Soft Edema: No Peripheral Pulses WNL: Yes Neurological: Yes: Alert, Oriented Labs: CBC, BMP 10/25/16 06:00 10/25/16 06:00 Problem List - Problems (1) Mastoiditis, acute Code(s): H70.009 - ACUTE MASTOIDITIS WITHOUT COMPLICATIONS, UNSPECIFIED EAR Qualifiers: Laterality: left Qualified Code(s): H70.002 - Acute mastoiditis without complications, left ear (2) Otitis externa Code(s): H60.90 - UNSPECIFIED OTITIS EXTERNA, UNSPECIFIED EAR Qualifiers: Otitis externa type: swimmer's ear Chronicity: acute Laterality: bilateral Qualified Code(s): H60.333 - Swimmer's ear, bilateral Assessment/Plan (1) Mastoiditis, acute Assessment/Plan: - ENT consult appreciated - As per ENT, this is a radiographic finding, but patient does not have clinical mastoiditis only a few cells have fluid or thickening, NO bony erosion (2) Otitis externa Assessment/Plan: - wick placed in left ear canal and eardrops placed by ENT - continue [id number]-gjjfbtrweiviks eardrops . - wick to be remove in 3 days as per ENT - As per ENT, left ear hearing loss is temporary and should resolve after infection and canal edema improve - CONT IV ABX - OTIC DROPS - TORADOL PRN - REPEAT LABS IN AM - POSSIBLE D/C TOMOROW
[2016-10-26 15:42] VITALS: BP 125/71; PULSE 71; TEMP 98
--- NOTE | 2016-10-26 17:03 | PN ---
Progress Note (short form) - Note Progress Note: feels better less ear fullness seen by ENT yesterday Vital Signs Period Temp Pulse Resp BP Sys/Longo Pulse Ox Last 24 Hr 97.9 F-98.0 F 61-71 16-18 124-132/59-71 98-98 no evidence of cellulitis surrounding ear canal cor-rrr lungs clear abd soft,nt ex tno edema CBC, BMP 10/25/16 06:00 10/25/16 06:00 Microbiology 10/24/16 06:24 Blood - Peripheral Venous Blood Culture - Preliminary NO GROWTH OBTAINED AFTER 48 HOURS, INCUBATION TO CONTINUE FOR 3 DAYS. 10/24/16 06:35 Blood - Peripheral Venous Blood Culture - Preliminary NO GROWTH OBTAINED AFTER 48 HOURS, INCUBATION TO CONTINUE FOR 3 DAYS. a/p otitis externa no evidence of mastoiditis management per ENT- ear drops/wick with ENT f/u Friday will d/c iv antibiotics
[2016-10-27] MEDS: ACETIC ACID 2% OTIC SOLN 15ML BOTTLE AD SCH ×2 (06:48→09:50)
[2016-10-27] MEDS: NEOMYCIN/POLYMYXN/HC OTIC SOLUTION 10 ML BOTTLE AU SCH ×2 (06:49)
[2016-10-27 07:43] LABS: BASOPHIL 0.5 % (0-2.0); EOSINOPHIL 4.6 % (0-4.5); MCH 30.5 pg (25.7-33.7); MEAN CELL VOLUME 87.2 fl (80-96); MEAN PLT VOLUME 8.1 fl (7.5-11.1); NEUTROPHILS 53.2 % (42.8-82.8); PLATELET COUNT 268 K/MM3 (134-434); RDW 13.1 % (11.9-15.9); WHITE BLOOD COUNT 6.1 K/mm3 (4.0-10.0)
[2016-10-27 08:16] LABS: ALBUMIN 3.5 g/dl (3.4-5.0); GLUCOSE,RANDOM 80 mg/dL (74-106)
[2016-10-27 08:21] LABS: ALK PHOS 57 U/L (45-117); ANION GAP 8 (8-16); BILIRUBIN,TOTAL 0.7 mg/dL (0.2-1.0); CO2 27 mmol/L (21-32); CREATININE 0.9 mg/dL (0.7-1.3); SGOT/AST 17 U/L (15-37); SGPT/ALT 26 U/L (12-78); TOT PROT 6.6 g/dl (6.4-8.2)
--- NOTE | 2016-10-27 09:39 | DS ---
Physical Examination Vital Signs: Vital Signs Temperature 98.0 F 10/26/16 15:40 Pulse Rate 71 10/26/16 15:40 Respiratory Rate 16 10/26/16 21:00 Blood Pressure 125/71 10/26/16 15:40 O2 Sat by Pulse Oximetry (%) 98 10/26/16 21:00 Constitutional: Yes: Well Nourished, No Distress, Calm Eyes: Yes: Conjunctiva Clear, EOM Intact HENT: Yes: Normocephalic (Hearing improved) Neck: Yes: Supple Cardiovascular: Yes: Regular Rate and Rhythm Respiratory: Yes: Regular, CTA Bilaterally Gastrointestinal: Yes: Normal Bowel Sounds, Soft Edema: No Peripheral Pulses WNL: Yes Neurological: Yes: Alert, Oriented Labs: CBC, BMP 10/27/16 06:20 10/27/16 06:20 Discharge Summary Reason For Visit: MASTOIDITIS,ACUTE Current Active Problems Mastoiditis, acute (Acute) Condition: Good - Instructions Referrals: Jerry Torres MD [Primary Care Provider] - Hakeem Cutler MD [Staff Physician] - Disposition: HOME - Home Medications Comprehensive Discharge Medication List: Ambulatory Orders Ciprofloxacin HCl/Dexameth [Ciprodex Otic Suspension] 4 drop BID #1 bottle Albuterol Sulfate Inhaler - [Ventolin HFA Inhaler -] 2 inh PO Q4H PRN 10/23/16 Cephalexin Monohydrate [Keflex] 500 mg PO Q6H #30 capsule 10/23/16 Acetaminophen [Tylenol .Regular Strength -] 650 mg PO Q6H PRN #0 tablet Neomycin/Polymyxn/Hc [Cortisporin *Otic Solution*-] 4 drop AU Q6HPO #1 unit
[2016-10-27] MEDS ORDERED: PT OWN MED DRAWER 7, Y5N ONE ×2 (09:48→09:49)
== END 2016-10-27 10:08 | disposition home or self-care (01) | DRG 113 ==
LOC: JER 03:18 → JERBED 07:45 → J8W 09:02
PROVIDERS: ADMIT Family Medicine; ATTEND Family Medicine
DX: H70.002 Acute mastoiditis without complications, left ear (principal); H60.93 Unspecified otitis externa, bilateral; F17.210 Nicotine dependence, cigarettes, uncomplicated; J45.909 Unspecified asthma, uncomplicated
CPT/HCPCS: 36415; 70480-TC; 80053; 85025; 85027; 85651; 86140; 87040; 99282-25

== ENCOUNTER 2017-06-09 18:32 | Emergency (ER) | payer OTHER ==
[2017-06-09 18:43] VITALS: BP 141/69; PULSE 87; TEMP 98.1; BMI 30.7
[2017-06-09] MEDS ORDERED: ACETAMINOPHEN 325 MG TABLET (FP) PO ONE (20:27)
[2017-06-09] MEDS ORDERED: ONDANSETRON 4 MG/2 ML VIAL IVPB ONE (20:27)
[2017-06-09] MEDS ORDERED: MAG HYDROX/AL HYDROX/SIMETH 30 ML UNIT-DOSE CUP PO ONE (20:27)
[2017-06-09] MEDS ORDERED: LACTATED RINGERS SOLUTION 1,000 ML/1,000 ML INFUS.BAG IV SCH (20:30)
[2017-06-09] MEDS ORDERED: ONDANSETRON 4 MG/2 ML VIAL ONE (20:48)
--- NOTE | 2017-06-09 20:58 | PDOC ---
History of Present Illness - General History Source: Patient Exam Limitations: No Limitations - History of Present Illness Initial Comments: 06/09/17 20:59 The patient is a 22 year old male, with a significant past medical history of Asthma who presents to the emergency department with persistent nausea and vomiting (nonbilious, nonbloody) for the past 3 days. Patient reports associated generalized abdominal pain, non radiating. Patient endorses decreased appetite and is unable to tolerate PO liquids or solids. Patient reports sick contacts at home with similar symptoms. Patient denies chest pain, headache or dizziness. Patient denies fever, chills, constipation. Patient denies dysuria, frequency, urgency or hematuria. Patient denies recent travel. Allergies: NKA Past surgical history: None Social history: Current everyday smoker PCP: None <Fiorella Hannah - Last Filed: 06/09/17 21:01> - General History Source: Patient Exam Limitations: No Limitations <Norberto Alejo - Last Filed: 06/09/17 22:02> - General Chief Complaint: Vomiting/Diarrhea Stated Complaint: VOMITING, DIARRHEA Time Seen by Provider: 06/09/17 20:20 Past History <Fiorella Hannah - Last Filed: 06/09/17 21:01> - Past Medical History Asthma: Yes COPD: No - Immunization History Td Vaccination: No TDAP Vaccination: No Immunization Up to Date: Yes - Suicide/Smoking/Psychosocial Hx Smoking Status: No Smoking History: Current every day smoker Have you smoked in the past 12 months: Yes Number of Cigarettes Smoked Daily: 10 Information on smoking cessation initiated: No 'Breaking Loose' booklet given: 10/24/16 Hx Alcohol Use: Yes ([facility]) Drug/Substance Use Hx: No Substance Use Type: None Hx Substance Use Treatment: No <Norberto Alejo - Last Filed: 06/09/17 22:02> - Past Medical History Allergies/Adverse Reactions: Allergies Allergy/AdvReac Type Severity Reaction Status Date / Time No Known Allergies Allergy Verified 06/09/17 18:38 Home Medications: Ambulatory Orders Ciprofloxacin HCl/Dexameth [Ciprodex Otic Suspension] 4 drop BID #1 bottle Albuterol Sulfate Inhaler - [Ventolin HFA Inhaler -] 2 inh PO Q4H PRN 10/23/16 Cephalexin Monohydrate [Keflex] 500 mg PO Q6H #30 capsule 10/23/16 Acetaminophen [Tylenol .Regular Strength -] 650 mg PO Q6H PRN #30 tablet Neomycin/Polymyxn/Hc [Cortisporin *Otic Solution*-] 4 drop AU Q6HPO #1 unit Acetaminophen [Tylenol] 650 mg PO Q4H PRN #20 tablet 06/09/17 Mag Hydrox/Aluminum Hyd/Simeth [Maalox Advanced Suspension] 30 ml PO Q6H PRN # 355 oral.susp 06/09/17 Ondansetron HCl [Zofran] 4 mg PO Q8H PRN #15 tablet 06/09/17 Review of Systems - Review of Systems Able to Perform ROS?: Yes Comments:: 06/09/17 20:59 GENERAL/CONSTITUTIONAL: No fever or chills. No weakness. HEAD, EYES, EARS, NOSE AND THROAT: No change in vision. No ear pain or discharge. No sore throat. CARDIOVASCULAR: No chest pain or shortness of breath. RESPIRATORY: No cough, wheezing, or hemoptysis. GASTROINTESTINAL: +nausea, vomiting, diarrhea. No constipation. GENITOURINARY: No dysuria, frequency, or change in urination. MUSCULOSKELETAL: No joint or muscle swelling or pain. No neck or back pain. SKIN: No rash NEUROLOGIC: No headache, vertigo, loss of consciousness, or change in strength/ sensation. ENDOCRINE: No increased thirst. No abnormal weight change. HEMATOLOGIC/LYMPHATIC: No anemia, easy bleeding, or history of blood clots. ALLERGIC/IMMUNOLOGIC: No hives or skin allergy. <Fiorella Hannah - Last Filed: 06/09/17 21:01> *Physical Exam - Vital Signs Last Vital Signs Temp Pulse Resp BP Pulse Ox 98.1 F 87 18 141/69 100 06/09/17 18:38 06/09/17 18:38 06/09/17 18:38 06/09/17 18:38 06/09/17 18:38 - Physical Exam Comments: 06/09/17 21:00 GENERAL: Awake, alert, and fully oriented, in no acute distress HEAD: No signs of trauma EYES: PERRLA, EOMI, sclera anicteric, conjunctiva clear ENT: Auricles normal inspection, hearing grossly normal, nares patent, oropharynx clear without exudates. +Dry mucous membranes. NECK: Normal ROM, supple, no lymphadenopathy, JVD, or masses LUNGS: Breath sounds equal, clear to auscultation bilaterally. No wheezes, and no crackles HEART: Regular rate and rhythm, normal S1 and S2, no murmurs, rubs or gallops ABDOMEN: Soft, nontender, normoactive bowel sounds. No guarding, no rebound. No masses EXTREMITIES: Normal range of motion, no edema. No clubbing or cyanosis. No cords, erythema, or tenderness NEUROLOGICAL: Cranial nerves II through XII grossly intact. Normal speech, normal gait SKIN: Warm, Dry, normal turgor, no rashes or lesions noted. <Fiorella Hannah - Last Filed: 06/09/17 21:01> - Vital Signs Last Vital Signs Temp Pulse Resp BP Pulse Ox 98.1 F 87 18 141/69 100 06/09/17 18:38 06/09/17 18:38 06/09/17 18:38 06/09/17 18:38 06/09/17 18:38 <Norberto Alejo - Last Filed: 06/09/17 22:02> ED Treatment Course - LABORATORY CBC & Chemistry Diagram: 06/09/17 20:40 06/09/17 20:40 - Medications Given in the ED: ED Medications Discontinued Medications Generic Name Dose Route Start Last Admin Trade Name Freq PRN Reason Stop Dose Admin Ondansetron HCl 4 mg 06/09/17 20:27 06/09/17 20:48 Zofran Injection IVPB 06/09/17 20:28 4 mg ONCE ONE Administration <Fiorella Hannah - Last Filed: 06/09/17 21:01> - LABORATORY CBC & Chemistry Diagram: 06/09/17 20:40 06/09/17 20:40 - Medications Given in the ED: ED Medications Discontinued Medications Generic Name Dose Route Start Last Admin Trade Name Freq PRN Reason Stop Dose Admin Ondansetron HCl 4 mg 06/09/17 20:27 06/09/17 20:48 Zofran Injection IVPB 06/09/17 20:28 4 mg ONCE ONE Administration <Norberto Alejo - Last Filed: 06/09/17 22:02> Medical Decision Making - Medical Decision Making 06/09/17 20:52 A portion of this note was documented by scribe services under my direction. I have reviewed the details of the note, within reason, and agree with the documentation with the following case summary and management plan written by me. Patient treated in the ED. Nursing notes are reviewed and incorporated into the medical decision-making. Vital signs reviewed. Peripheral IV access obtained by the nurse, laboratory studies are drawn and sent, reviewed and interpreted by myself. Vital Signs Temp Pulse Resp BP Pulse Ox 98.1 F 87 18 141/69 100 06/09/17 18:38 06/09/17 18:38 06/09/17 18:38 04 18:38 06/09/17 18:38 22-year-old male with no past medical history presents with nausea, vomiting and diarrhea for last 2 and half days. Patient reports positive sick contact with his friend. Denies sick or bad foods, recent travels. I fevers or chills. States had decreased appetite. Has had tried to eat solids but has vomited. I suspect the patient likely is gastroenteritis. The patient is nontoxic- appearing but with some dry mucous members. We'll obtain blood work to rule out other acute pathology and give IV fluids. Symptoms improve and the workup is unremarkable, the patient discharged home. 06/09/17 21:59 CBC, BMP 06/09/17 20:40 06/09/17 20:40 CMP Sodium 139 mmol/L (136-145) 06/09/17 20:40 Potassium 4.0 mmol/L (3.5-5.1) 06/09/17 20:40 Chloride 108 mmol/L (98-107) H 06/09/17 20:40 Carbon Dioxide 26 mmol/L (21-32) 06/09/17 20:40 Anion Gap 5 (8-16) L 06/09/17 20:40 BUN 11 mg/dL (7-18) 06/09/17 20:40 Creatinine 0.9 mg/dL (0.7-1.3) 06/09/17 20:40 Creat Clearance w eGFR > 60 (>60) 06/09/17 20:40 Random Glucose 97 mg/dL (74-106) D 06/09/17 20:40 Calcium 8.4 mg/dL (8.5-10.1) L 06/09/17 20:40 Total Bilirubin 0.2 mg/dL (0.2-1.0) D 06/09/17 20:40 AST 13 U/L (15-37) L D 06/09/17 20:40 ALT 18 U/L (12-78) D 06/09/17 20:40 Alkaline Phosphatase 70 U/L (45-117) D 06/09/17 20:40 Total Protein 7.1 g/dl (6.4-8.2) 06/09/17 20:40 Albumin 4.0 g/dl (3.4-5.0) 06/09/17 20:40 Lipase 120 U/L (73-393) 06/09/17 20:40 Pt reports feeling better. Will discharge as gastroenteritis. I discussed the physical exam findings, ancillary test results and final diagnoses with the patient. I answered all of the patient's questions. The patient was satisfied with the care received and felt comfortable with the discharge plan and treatment plan. The patient will call their primary care physician within 24 hours to arrange follow-up and will return to the Emergency Department with any new, persistant or worsening symptoms. <Norberto Alejo - Last Filed: 06/09/17 22:02> *DC/Admit/Observation/Transfer - Attestations Scribe Attestion: 06/09/17 21:00 Documentation prepared by Fiorella Hannah, acting as medical insurance verifier for Norberto Alejo MD, <Fiorella Hannah - Last Filed: 06/09/17 21:01> - Discharge Dispostion Admit: No <Norberto Alejo - Last Filed: 06/09/17 22:02> Diagnosis at time of Disposition: Gastroenteritis - Discharge Dispostion Disposition: HOME Condition at time of disposition: Improved - Prescriptions Prescriptions: Acetaminophen [Tylenol] 650 mg PO Q4H PRN #20 tablet PRN Reason: Pain Mag Hydrox/Aluminum Hyd/Simeth [Maalox Advanced Suspension] 30 ml PO Q6H PRN # 355 oral.susp PRN Reason: Abdominal Pain Ondansetron HCl [Zofran] 4 mg PO Q8H PRN #15 tablet PRN Reason: Nausea - Referrals Referrals: Jerry Torres MD [Primary Care Provider] - - Patient Instructions Printed Discharge Instructions: DI for Viral Gastroenteritis -- Adult Additional Instructions: Your blood work is unremarkable. Please drink plenty of fluids and rest. It may take several days before your symptoms improve. - Post Discharge Activity Forms/Work/School Notes: Back to Work
[2017-06-09] MEDS ORDERED: ACETAMINOPHEN 325 MG TABLET (FP) ONE (21:11)
[2017-06-09] MEDS ORDERED: MAG HYDROX/AL HYDROX/SIMETH 30 ML UNIT-DOSE CUP ONE (21:12)
[2017-06-09 21:18] LABS: ALK PHOS 70 U/L (45-117); ANION GAP 5 (8-16); BILIRUBIN,TOTAL 0.2 mg/dL (0.2-1.0); BLOOD UREA NITROGEN 11 mg/dL (7-18); CALCIUM 8.4 mg/dL (8.5-10.1); CHLORIDE 108 mmol/L (98-107); CO2 26 mmol/L (21-32); CREATININE 0.9 mg/dL (0.7-1.3); GLUCOSE,RANDOM 97 mg/dL (74-106); LIPASE 120 U/L (73-393); SGOT/AST 13 U/L (15-37); SGPT/ALT 18 U/L (12-78); SODIUM 139 mmol/L (136-145); TOT PROT 7.1 g/dl (6.4-8.2)
[2017-06-09 21:45] LABS: BASO % 1.1 % (0-2.0); EOS % 10.5 % (0-4.5); HEMATOCRIT 48.7 % (35.4-49); HEMOGLOBIN 16.8 GM/dL (11.7-16.9); MCH 30.4 pg (25.7-33.7); MCHC 34.5 g/dl (32.0-35.9); MEAN CELL VOLUME 88.2 fl (80-96); MEAN PLT VOLUME 8.5 fl (7.5-11.1); MONO % 13.8 % (3.8-10.2); NEUT % 50.6 % (42.8-82.8); PLATELET COUNT 198 K/MM3 (134-434); RBC 5.52 M/mm3 (4.00-5.60); RDW 14.2 % (11.9-15.9); WHITE BLOOD COUNT 5.9 K/mm3 (4.0-10.0)
== END 2017-06-09 22:26 | disposition home or self-care (01) ==
LOC: JER 18:32
PROC: 3E0337Z Introduction of Electrolytic and Water Balance Substance into Peripheral Vein, Percutaneous Approach (ICD-10-PCS; principal; 2017-06-09)
PROC: 3E033GC Introduction of Other Therapeutic Substance into Peripheral Vein, Percutaneous Approach (ICD-10-PCS; 2017-06-09)
DX: K52.9 Noninfective gastroenteritis and colitis, unspecified (principal); J45.909 Unspecified asthma, uncomplicated; F17.210 Nicotine dependence, cigarettes, uncomplicated
CPT/HCPCS: 36415; 80053; 83690; 85025; 99281-25

== ENCOUNTER 2017-11-14 16:11 | Emergency (ER) | payer OTHER ==
--- NOTE | 2017-11-14 16:18 | PDOC ---
Rapid Medical Evaluation Chief Complaint: Pain Time Seen by Provider: 11/14/17 16:14 Medical Evaluation: Allergies Allergy/AdvReac Type Severity Reaction Status Date / Time No Known Allergies Allergy Verified 06/09/17 18:38 11/14/17 16:15 22 year old male with mulitple complaints of nausea, vomiting diarrhea, "black stool" polydipsia, polyphagia for 1 week generalized abdominal discomfort. reports weightloss. " I think i have a tapeworm or i have an ulcer. " PE: patient alertx 3 A: abdominal pain P; UA patient to the ER for the further management of care Discharge Disposition - Diagnosis Abdominal pain Qualifiers: Abdominal location: unspecified location Qualified Code(s): R10.9 - Unspecified abdominal pain - Referrals Referrals: Jerry Torres MD [Primary Care Provider] - - Patient Instructions - Post Discharge Activity
[2017-11-14 16:22] VITALS: BP 150/94; PULSE 79; TEMP 98.3; BMI 29.7
--- NOTE | 2017-11-14 16:33 | PDOC ---
History of Present Illness - General Chief Complaint: Pain Stated Complaint: NAUSEA, VOMITING,DIARRHEA Time Seen by Provider: 11/14/17 16:14 - History of Present Illness Initial Comments: 11/14/17 16:33 Mr. Bai is a 22 yo male w/ pmh of Asthma who presents for evaluation of abdominal pain with nausea, vomiting, and diarrhea for several days. Patient reports symptoms started last week after he ate a hot dog at a baseball game and included dark black stool. Patient reports he didn't eat or drink for several days and although his symptoms started to improve, became worried when he wiped today and noticed an odd substance on the toilet paper he believes to be a worm. The patient denies chest pain, shortness of breath, headache and dizziness. Denies fever, chills, and constipation. Denies dysuria, frequency, urgency and hematuria. Allergies: NKDA Past History - Past Medical History Allergies/Adverse Reactions: Allergies Allergy/AdvReac Type Severity Reaction Status Date / Time No Known Allergies Allergy Verified 11/14/17 16:16 Home Medications: Ambulatory Orders Albuterol Sulfate Inhaler - [Ventolin HFA Inhaler -] 2 inh PO Q4H PRN 10/23/16 Acetaminophen [Tylenol .Regular Strength -] 650 mg PO Q6H PRN #30 tablet Neomycin/Polymyxn/Hc [Cortisporin *Otic Solution*-] 4 drop AU Q6HPO #1 unit Ondansetron HCl [Zofran] 4 mg PO Q8H PRN #15 tablet 06/09/17 Asthma: Yes COPD: No - Immunization History Td Vaccination: No TDAP Vaccination: No Immunization Up to Date: Yes - Suicide/Smoking/Psychosocial Hx Smoking Status: No Smoking History: Never smoked Have you smoked in the past 12 months: Yes Number of Cigarettes Smoked Daily: 10 Information on smoking cessation initiated: No 'Breaking Loose' booklet given: 10/24/16 Hx Alcohol Use: No Drug/Substance Use Hx: No Substance Use Type: None Hx Substance Use Treatment: No Review of Systems - Review of Systems Comments:: 11/14/17 17:13 GENERAL/CONSTITUTIONAL: No fever or chills. No weakness. HEAD, EYES, EARS, NOSE AND THROAT: No change in vision. No ear pain or discharge. No sore throat. CARDIOVASCULAR: No chest pain or shortness of breath RESPIRATORY: No cough, wheezing, or hemoptysis. GASTROINTESTINAL: +N/V/D as described. GENITOURINARY: No dysuria, frequency, or change in urination. MUSCULOSKELETAL: No joint or muscle swelling or pain. No neck or back pain. SKIN: No rash NEUROLOGIC: No headache, vertigo, loss of consciousness, or change in strength/ sensation. ENDOCRINE: No increased thirst. No abnormal weight change HEMATOLOGIC/LYMPHATIC: No anemia, easy bleeding, or history of blood clots. ALLERGIC/IMMUNOLOGIC: No hives or skin allergy. *Physical Exam - Vital Signs Last Vital Signs Temp Pulse Resp BP Pulse Ox 98.3 F 79 16 150/94 99 11/14/17 16:16 11/14/17 16:16 11/14/17 16:16 11/14/17 16:16 11/14/17 16:16 - Physical Exam Comments: 11/14/17 17:14 GENERAL: Awake, alert, and fully oriented, in no acute distress HEAD: No signs of trauma, normocephalic, atraumatic EYES: PERRLA, EOMI, sclera anicteric, conjunctiva clear ENT: Auricles normal inspection, hearing grossly normal, nares patent, oropharynx clear without exudates. Moist mucosa NECK: Normal ROM, supple, no lymphadenopathy, JVD, or masses LUNGS: No distress, speaks full sentences, clear to auscultation bilaterally HEART: Regular rate and rhythm, normal S1 and S2, no murmurs, rubs or gallops, peripheral pulses normal and equal bilaterally. ABDOMEN: Soft, nontender, normoactive bowel sounds. No guarding, no rebound. No masses EXTREMITIES: Normal inspection, Normal range of motion, no edema. No clubbing or cyanosis. NEUROLOGICAL: Cranial nerves II through XII grossly intact. Normal speech, normal gait, no focal sensorimotor deficits SKIN: Warm, Dry, normal turgor, no rashes or lesions noted. ED Treatment Course - LABORATORY CBC & Chemistry Diagram: 11/14/17 17:13 11/14/17 17:13 Medical Decision Making - Medical Decision Making 11/14/17 18:26 Mr. Bai is a 22 yo male w/ pmh as described who presents for evaluation of symptoms concerning for resolving viral gastric illness. Patient well appearing at this time. Labs grossly unconcerning. Discharging to home w/ instructions to f/u w/ PCP for further evaluation. Patient verbalized understanding and agreement and will comply. Laboratory Results - last 24 hr 11/14/17 11/14/17 11/14/17 16:44 16:44 17:13 WBC 6.4 RBC 5.33 Hgb 16.3 Hct 46.4 MCV 87.0 MCH 30.7 MCHC 35.3 RDW 13.6 Plt Count 234 MPV 8.1 Absolute Neuts (auto) 4.1 Neutrophils % 63.2 D Lymphocytes % 19.8 Monocytes % 11.5 H Eosinophils % 4.3 Basophils % 1.2 Nucleated RBC % 0 Sodium Potassium Chloride Carbon Dioxide Anion Gap BUN Creatinine Creat Clearance w eGFR Random Glucose Calcium Total Bilirubin AST ALT Alkaline Phosphatase Total Protein Albumin Urine Color Yellow Urine Appearance Clear Urine pH 6.0 Ur Specific [place] 1.025 Urine Protein Negative Urine Glucose (UA) Negative Urine Ketones Negative Urine Blood Negative Urine Nitrite Negative Urine Bilirubin Negative Urine Urobilinogen Negative Ur Leukocyte Esterase Negative Stool Occult Blood Negative 11/14/17 17:13 WBC RBC Hgb Hct MCV MCH MCHC RDW Plt Count MPV Absolute Neuts (auto) Neutrophils % Lymphocytes % Monocytes % Eosinophils % Basophils % Nucleated RBC % Sodium 141 Potassium 4.0 Chloride 106 Carbon Dioxide 26 Anion Gap 9 BUN 14 Creatinine 0.8 Creat Clearance w eGFR > 60 Random Glucose 112 H Calcium 9.1 Total Bilirubin 0.4 AST 20 D ALT 27 D Alkaline Phosphatase 65 Total Protein 7.4 Albumin 4.1 Urine Color Urine Appearance Urine pH Ur Specific [place] Urine Protein Urine Glucose (UA) Urine Ketones Urine Blood Urine Nitrite Urine Bilirubin Urine Urobilinogen Ur Leukocyte Esterase Stool Occult Blood *DC/Admit/Observation/Transfer Diagnosis at time of Disposition: Abdominal pain Qualifiers: Abdominal location: unspecified location Qualified Code(s): R10.9 - Unspecified abdominal pain - Discharge Dispostion Disposition: HOME - Referrals Referrals: Jerry Torres MD [Primary Care Provider] - - Patient Instructions Printed Discharge Instructions: DI for Viral Gastroenteritis -- Adult Additional Instructions: You were evaluated today in the ER for your abdominal symptoms. No emergent findings were identified at this time. Please follow-up in 1-2 days for further evaluation. Return to ER if any fever, chills, nausea, vomiting, or other concerning symptoms. - Post Discharge Activity
[2017-11-14] MEDS ORDERED: SODIUM CHLORIDE 1,000 ML IV STA (17:08)
[2017-11-14 17:21] LABS: URINE APPEARANCE CLEAR; URINE BILIRUBIN NEGATIVE (<2.0 mg/dL); URINE COLOR YELLOW; URINE GLUCOSE (UA) NEGATIVE (NEGATIVE); URINE KETONE NEGATIVE (NEGATIVE); URINE LEUK ESTERASE NEGATIVE (NEGATIVE); URINE NITRITE NEGATIVE (NEGATIVE); URINE PROTEIN NEGATIVE (NEGATIVE); URINE UROBILINOGEN NEGATIVE mg/dL (0.2-1.0)
[2017-11-14 17:47] LABS: BASO % 1.2 % (0-2.0); EOS % 4.3 % (0-4.5); HEMATOCRIT 46.4 % (35.4-49); HEMOGLOBIN 16.3 GM/dL (11.7-16.9); LYMPH % 19.8 % (8-40); MCH 30.7 pg (25.7-33.7); MCHC 35.3 g/dl (32.0-35.9); MEAN PLT VOLUME 8.1 fl (7.5-11.1); MONO % 11.5 % (3.8-10.2); NEUT % 63.2 % (42.8-82.8); PLATELET COUNT 234 K/MM3 (134-434); RBC 5.33 M/mm3 (4.00-5.60); RDW 13.6 % (11.9-15.9); WHITE BLOOD COUNT 6.4 K/mm3 (4.0-10.0)
[2017-11-14 18:13] LABS: ALBUMIN 4.1 g/dl (3.4-5.0); ANION GAP 9 MMOL/L (8-16); BLOOD UREA NITROGEN 14 mg/dL (7-18); CALCIUM 9.1 mg/dL (8.5-10.1); CHLORIDE 106 mmol/L (98-107); CO2 26 mmol/L (21-32); CREATININE 0.8 mg/dL (0.7-1.3); GLUCOSE,RANDOM 112 mg/dL (74-106); SGPT/ALT 27 U/L (12-78); SODIUM 141 mmol/L (136-145)
[2017-11-14 18:14] LABS: ALK PHOS 65 U/L (45-117); BILIRUBIN,TOTAL 0.4 mg/dL (0.2-1.0); TOT PROT 7.4 g/dl (6.4-8.2)
--- NOTE | 2017-11-14 18:21 | PDOC ---
Attending Attestation - Resident Resident Name: [place] Medina - ED Attending Attestation I have performed the following: I have examined & evaluated the patient, The case was reviewed & discussed with the resident, I agree w/resident's findings & plan, Exceptions are as noted - Medical Decision Making 11/14/17 18:19 I, Dr. Alla Vieira, DO, attest that this document has been prepared under my direction and personally reviewed by me in its entirety. I further attest, that it accurately reflects all work, treatment, procedures and medical decision -making performed by me. 11/14/17 18:19 22yo male with diarrhea that has since resolved -diarrhea after being at a baseball game and eating a hot dog -took pepto bismol and diarrhea resolved -normal bm today at 2p -no abd pain -will check labs, stool for heme, ivf hydraiton -nontoxic in appearance -will be dispo to home pending labs -pt has tolerated po intake without difficulty <Alla Vieira - Last Filed: 11/14/17 18:19> - HPI HPI: 11/14/17 18:24 The patient is a 22-year-old male with a past medical history of asthma to the emergency department with nausea and vomiting. The patient reports about a week ago; the patient went to a baseball game where he reports having food to eat, denies having abnormal food or taste. The patient reports following, hes been having episodes of nausea, nonbilious-bloody vomiting. The patient reports an additional concern of diarrhea, with a single episode of blood in the stool, that was resolved following the use of Pepto Bismol. The patient reports his last normal bowel movement was around 2:00 pm today. Denies dysuria, hematuria, frequency or urgency to urinate, recent travel outside the country, sick contact. Allergies: NKA Surgical history: None reported Social history: Former smoker. No alcohol or recreational drug use reported. PCP: Jerry Ramos MD - Physicial Exam PE: 11/14/17 18:24 GENERAL: Awake, alert, and fully oriented, in no acute distress HEAD: No signs of trauma EYES: PERRLA, EOMI, sclera anicteric, conjunctiva clear ENT: Auricles normal inspection, hearing grossly normal, nares patent. Moist mucosa NECK: Normal ROM, supple, no lymphadenopathy, JVD, or masses LUNGS: Breath sounds equal, clear to auscultation bilaterally. No wheezes, and no crackles HEART: Regular rate and rhythm, normal S1 and S2, no murmurs, rubs or gallops ABDOMEN: Soft, nontender, normoactive bowel sounds. No guarding, no rebound. No masses EXTREMITIES: Normal range of motion, no edema. No erythema or tenderness. DP/PT pulses 2+ and symmetric. Warm and well perfused. NEUROLOGICAL: Moves all extremities. Normal speech, normal gait SKIN: Warm, Dry, normal turgor, no rashes or lesions noted. - Medical Decision Making 11/14/17 18:24 Documentation prepared by Reshma Palmer, acting as medical dir for Alla Vieira DO. <Reshma Palmer - Last Filed: 11/14/17 18:29>
[2017-11-14 18:33] LABS: SGOT/AST 20 U/L (15-37)
== END 2017-11-14 18:43 | disposition home or self-care (01) ==
LOC: JER 16:11
PROC: 3E0337Z Introduction of Electrolytic and Water Balance Substance into Peripheral Vein, Percutaneous Approach (ICD-10-PCS; principal; 2017-11-14)
DX: A08.4 Viral intestinal infection, unspecified (principal); B97.89 Other viral agents as the cause of diseases classified elsewhere; R63.4 Abnormal weight loss; Z68.29 Body mass index [BMI] 29.0-29.9, adult
CPT/HCPCS: 36415; 80053; 81003; 82272; 85025; 96360; 99283-25; J7030

== ENCOUNTER 2020-03-01 11:36 | Emergency (ER) | payer OTHER ==
[2020-03-01 11:52] VITALS: BP 154/58; PULSE 73; TEMP 97.5; BMI 29.0
[2020-03-01] MEDS ORDERED: DEXAMETHASONE LIQUID 0.5 MG/5 ML PO ONE (12:14)
[2020-03-01] MEDS ORDERED: DEXAMETHASONE SOD PHOSPHATE 10 MG/1 ML VIAL ONE (13:40)
== END 2020-03-01 13:50 | disposition home or self-care (01) ==
LOC: JER 11:36
DX: J45.901 Unspecified asthma with (acute) exacerbation (principal)
CPT/HCPCS: 99283-25